=== PATIENT | female | born 1990 | race Caucasian/White ===

== ENCOUNTER 2018-05-13 17:50 | Emergency (ER) | payer MEDICAID ==
[2018-05-13 18:00] VITALS: RESP 18
[2018-05-13 18:53] LABS: BASO # 0.03 K/mm3 (0.0-2.0); BASO % 0.2 % (0.0-3.0); EOS % 0.1 % (1.5-5.0); GRAN # 11.04 (1.4-6.5); GRAN % 79.7 % (50.0-68.0); HEMOGLOBIN 14.1 g/dL (12.0-16.0); LYMPH # 2.2 (1.2-3.4); LYMPH % 15.7 % (22.0-35.0); MEAN CELL VOLUME 78.9 fl (80.0-105.0); MEAN CORPUSCULAR HEMOGLOBIN 26.8 pg (25.0-35.0); MEAN CORPUSCULAR HGB CONC 33.9 g/dl (31.0-37.0); MEAN PLATELET VOLUME 10.1 fl (7.0-11.0); MONO # 0.6 (0.1-0.6); MONO % 4.3 % (1.0-6.0); RBC 5.27 10^6/uL (3.5-6.1); RED CELL DISTRIBUTION WIDTH 12.6 % (11.5-14.5); WHITE BLOOD COUNT 13.9 10^3/uL (4.5-11.0)
[2018-05-13 19:02] VITALS: O2SAT 100
[2018-05-13] MEDS ORDERED: Sodium Chloride 0.9% 1,000 ML IV STA (19:02)
[2018-05-13 19:03] LABS: ACETAMINOPHEN < 10.0 ug/ml (10.0-20.0); ALB/GLOB RATIO 1.4 (1.1-1.8); ALT/SGPT 33 U/L (7-56); AST/SGOT 35 U/L (14-36); BLOOD UREA NITROGEN 22 mg/dL (7-21); CALCIUM 9.8 mg/dL (8.4-10.5); GFR NON-AFRICAN AMERICAN > 60; SALICYLATE < 1 mg/dL (2.0-20.0)
--- NOTE | 2018-05-13 19:30 | CARD ---
APPROVED REPORT Date of service: 05/13/2018 EKG Measurement Heart [id number] <Conclusion> Sinus tachycardia Incomplete RBBB Borderline ECG
[2018-05-13 19:38] LABS: T4 9.8 ug/dL (5.5-11.0)
[2018-05-13 19:45] LABS: URINE BILIRUBIN NEGATIVE (NEGATIVE); URINE BLOOD TRACE-INTACT (NEGATIVE); URINE GLUCOSE (UA) NEGATIVE (NEGATIVE); URINE LEUKOCYTE ESTERASE TRACE Leu/uL (NEGATIVE); URINE PROTEIN 100 mg/dL (<30 mg/dL); URINE UROBILINOGEN 0.2 E.U./dL (<1 E.U./dL)
--- NOTE | 2018-05-13 19:45 | ED PDOC ---
Arrival/HPI - General Chief Complaint: Psychiatric Evaluation Time Seen by Provider: 05/13/18 17:55 Historian: Patient - History of Present Illness Narrative History of Present Illness (Text): 05/13/18 19:38 27 year old female with PMH of bipolar disorder and anxiety presents to the emergency department biba with BPD for bizarre behavior at work this evening. Pt works for a construction company. Pt states she was just "stressed out" at work. States she has been off of her bipolar medications since February, and was previously on Risperidone and Depakote. She has a psychiatrist located in [place]. It is unclear the last time she saw her psychiatrist. Pt manic with flight of ideas during pt interview, speaking very quickly, appears anxious. Denies substance use, hallucinations, delusions, SI/HI, fever, chills, chest pain, SOB, hemoptysis, cough, urinary symptoms, abdominal pain, N/V, or any other associated symptoms. Past Medical History - Provider Review Nursing Documentation Reviewed: Yes - Psychiatric Hx Bipolar Disorder: Yes Hx Substance Use: No - Anesthesia Hx Anesthesia: No Hx Anesthesia Reactions: No Hx Malignant Hyperthermia: No Family/Social History - Physician Review Nursing Documentation Reviewed: Yes Family/Social History: No Known Family HX Smoking Status: Never Smoked Hx Alcohol Use: Yes Frequency of alcohol use: Socially Hx Substance Use: No Allergies/Home Meds Allergies/Adverse Reactions: Allergies No Known Allergies Allergy (Verified 05/13/18 18:00) Review of Systems - Physician Review All systems were reviewed & negative as marked: Yes - Review of Systems Constitutional: Normal. absent: Fevers Eyes: Normal. absent: Vision Changes ENT: Normal. absent: Sore Throat, Sinus Congestion Respiratory: Normal. absent: SOB, Cough Cardiovascular: Normal. absent: Chest Pain, Palpitations, Syncope Gastrointestinal: Normal. absent: Abdominal Pain, Nausea, Vomiting Genitourinary Female: Normal. absent: Dysuria, Frequency, Vaginal Bleeding, Vaginal Discharge Musculoskeletal: Normal. absent: Back Pain Skin: Normal. absent: Rash Neurological: Normal. absent: Headache, Dizziness, Focal Weakness, Dis equilibrium Endocrine: Normal Hemo/Lymphatic: Normal Psychiatric: Anxiety. absent: Depression, Suicidal Ideation Physical Exam Vital Signs Reviewed: Yes Vital Signs Temp Pulse Resp BP Pulse Ox 05/13/18 18:59 112 H 18 100 05/13/18 18:00 97.7 F 126 H 18 125/90 97 Temperature: Afebrile Blood Pressure: Normal Pulse: Tachycardic Respiratory Rate: Normal Appearance: Positive for: Well-Appearing, Non-Toxic, Other (Manic, Anxious, Delusional) Pain Distress: None Mental Status: Positive for: Alert and Oriented X 3, other (Manic, Anxious) - Systems Exam Head: Present: Atraumatic, Normocephalic Pupils: Present: PERRL Extroacular Muscles: Present: EOMI Conjunctiva: Present: Normal Mouth: Present: Moist Mucous Membranes Neck: Present: Normal Range of Motion. No: Meningeal Signs, MIDLINE TENDERNESS, Paraspinal Tenderness Respiratory/Chest: Present: Clear to Auscultation, Good Air Exchange. No: Respiratory Distress, Accessory Muscle Use Cardiovascular: Present: Regular Rate and Rhythm, Normal S1, S2, Peripheal Pulses Present. No: Murmurs Abdomen: Present: Normal Bowel Sounds. No: Tenderness, Distention, Peritoneal Signs, Rebound, Guarding Back: Present: Normal Inspection. No: CVA Tenderness, Midline Tenderness, Paraspinal Tenderness Upper Extremity: Present: Normal Inspection, Normal ROM, NORMAL PULSES, Neurovascularly Intact, Capillary Refill < 2s. No: Cyanosis, Edema, Temperature Abnormalties Lower Extremity: Present: Normal Inspection, NORMAL PULSES, Neurovascularly Intact, Capillary Refill < 2 s. No: Edema, Deformity, Temperature Abnormalties Neurological: Present: GCS=15, CN II-XII Intact, Speech Normal, Motor Func Grossly Intact, Normal Sensory Function, Gait Normal Skin: Present: Warm, Dry, Normal Color. No: Rashes Lymphatic: No: Cervical Adenopathy Psychiatric: Present: Alert, Oriented x 3, Normal Insight, Normal Concentration, Anxious, Other (Manic). No: Suicidal Ideation, Homicidal Ideation Medical Decision Making ED Course and Treatment: 05/13/18 19:46 Initial Plan: * CBC, CMP * TSH, T3, T4 * Alcohol, Acetaminophen, Salicylate levels * Urinalysis, culture * EKG * CXR * PES evaluation EKG shows sinus tachycardia at 140bpm, Normal intervals, No STEMI Patient denies SOB or chest pain. Bloodwork significant for leukocytosis at 13.9 Urinalysis shows trace leuk esterase and blood Alcohol, acetaminophen, salicylate negative Pt refusing IVF. 20:00 Patient care signed out to PA [place], pending CXR, thyroid studies, PES evaluation, disposition. - Lab Interpretations Lab Results: Total Bilirubin 1.2 mg/dL (0.2-1.3) 05/13/18 18:35 AST 35 U/L (14-36) 05/13/18 18:35 ALT 33 U/L (7-56) 05/13/18 18:35 Alkaline Phosphatase 52 U/L (38-126) 05/13/18 18:35 Total Protein 8.4 g/dL (5.8-8.3) H 05/13/18 18:35 Albumin 5.0 g/dL (3.0-4.8) H 05/13/18 18:35 Globulin 3.5 gm/dL 05/13/18 18:35 Albumin/Globulin Ratio 1.4 (1.1-1.8) 05/13/18 18:35 05/13/18 18:35 05/13/18 18:35 Lab Results 05/13/18 19:35: Urine Color Yellow, Urine Appearance Clear, Urine pH 6.0, Ur Specific [place] 1.025, Urine Protein 100 H, Urine Glucose (UA) Negative, Urine Ketones Negative, Urine Blood Trace-intact H, Urine Nitrate Negative, Urine Bilirubin Negative, Urine Urobilinogen 0.2, Ur Leukocyte Esterase Trace H, Urine RBC Pending, Urine WBC Pending 05/13/18 19:00: Thyroxine (T4) 9.8, Total T3 Pending, TSH 3rd Generation Pending 05/13/18 18:35: Alcohol, Quantitative < 10 05/13/18 18:35: Salicylates < 1 L, Acetaminophen < 10.0 L 05/13/18 18:35: Sodium 141, Potassium 3.4 L, Chloride 106, Carbon Dioxide 22, Anion Gap 16, BUN 22 H, Creatinine 1.0, Est GFR ( Amer) > 60, Est GFR (Non-Af Amer) > 60, Random Glucose 130 H, Calcium 9.8, Magnesium 1.9, Total Bilirubin 1.2, AST 35, ALT 33, Alkaline Phosphatase 52, Total Protein 8.4 H, Albumin 5.0 H, Globulin 3.5, Albumin/Globulin Ratio 1.4 05/13/18 18:35: WBC 13.9 H, RBC 5.27, Hgb 14.1, Hct 41.6, MCV 78.9 L, MCH 26.8, MCHC 33.9, RDW 12.6, Plt Count 321, MPV 10.1, Gran % 79.7 H, Lymph % (Auto) 15.7 L, [place] % (Auto) 4.3, Eos % (Auto) 0.1 L, Baso % (Auto) 0.2, Gran # 11.04 H, Lymph # (Auto) 2.2, [place] # (Auto) 0.6, Eos # (Auto) 0.0, Baso # (Auto) 0.03 I have reviewed the lab results: Yes - RAD Interpretation Radiology Orders: 05/13/18 18:37 CHEST PORTABLE [RAD] Stat - Medication Orders Current Medication Orders: Sodium Chloride (Sodium Chloride 0.9%) 1,000 mls @ 999 mls/hr IV .Q1H1M STA Stop: 05/13/18 20:02 - Transfer of Care Patient signed out to Dr:: XIOMARA DALLAS Pending Labs:: TSH, T3, T4 Pending Radiology Studies:: CXR Other: PES EVAL, DISPOSITION Disposition/Present on Arrival - Present on Arrival Any Indicators Present on Arrival: No History of DVT/PE: No History of Uncontrolled Diabetes: No Urinary Catheter: No History of Decub. Ulcer: No History Surgical Site Infection Following: None - Disposition Have Diagnosis and Disposition been Completed?: No Diagnosis: UTI (urinary tract infection), Anxious appearance Disposition Time: 20:00 Condition: STABLE Discharge Instructions (ExitCare): Urinary Tract Infections in Adults, Bipolar Disorder Additional Instructions: Thank you for letting us take care of you today. You were treated for UTI, bipolar d/o. The emergency medical care you received today was directed at your acute symptoms. If you were prescribed any medication, please fill it and take as directed. It may take several days for your symptoms to resolve. Return to the Emergency Department if your symptoms worsen, do not improve, or if you have any other problems. Please contact your doctor in 2 days for re-evaluation and follow up / or call one of the physicians/clinics you have been referred to that are listed on the Patient Visit Information form that is included in your discharge packet. Bring any paperwork you were given at discharge with you along with any medications you are taking to your follow up visit. Our treatment cannot replace ongoing medical care by a primary care provider (PCP) outside of the emergency department. Thank you for allowing the [facility] team to be part of your care today. If you had an X-Ray: A Radiologist will review the ED reading if any change in treatment is needed we will contact you. If you had a urine culture: It will take several days for the results, if any change in treatment is needed we will contact you. Prescriptions: Nitrofurantoin Macrocrystals [Macrobid] 100 mg PO BID #20 cap Forms: [employer] (Bengali)
[2018-05-13 19:46] LABS: URINE COLOR YELLOW (YELLOW)
[2018-05-13 19:47] LABS: URINE APPEARANCE CLEAR (CLEAR)
[2018-05-13 19:51] LABS: T3 1.67 ng/mL (0.97-1.69)
[2018-05-13 20:00] LABS: BARBITURATES, UR NEGATIVE (NEGATIVE); BENZODIAZEPINES, UR NEGATIVE (NEGATIVE); OPIATES, UR NEGATIVE (NEGATIVE); PHENCYCLIDINE, UR NEGATIVE (NEGATIVE)
--- NOTE | 2018-05-13 20:44 | ED PDOC ---
Physical Exam Vital Signs Temp Pulse Resp BP Pulse Ox 05/13/18 18:59 112 H 18 100 05/13/18 18:00 97.7 F 126 H 18 125/90 97 Medical Decision Making ED Course and Treatment: 05/13/18 20:00 Case endorsed to me by DEVIN Guzman for pending PES evaluation. Patient is a 27 year old female who presented to the ED earlier today for evaluation of bizarre behavior at work. Patient is currently resting in bed in no acute distress. Patient denies any new medical complaints. Labs reviewed : wbc 13. UA and CXR still pending. 05/13/18 22:00 Patient seen and evaluated by PES. After PES evaluation, the patient is cleared for outpatient psych follow up. CXR : NAD. UA shows +UTI. On reevaluation, patient remains awake alert and oriented 3 in no acute distress, she is calm and cooperative. Diagnostic results d/w the patient. Notified that she has a UTI. Gave Rx for macrobid. Advised to follow up with primary care physician and outpatient psych referral provided by PES in 1-2 days without fail. Advised to take medication as prescribed. Return to the emergency room at any time for any new or worsening symptoms. Patient states she fully agrees with and understands discharge instructions. States that she agrees with the plan and disposition. Verbalized and repeated discharge instructions and plan. I have given the patient opportunity to ask any additional questions. - Lab Interpretations Lab Results: Total Bilirubin 1.2 mg/dL (0.2-1.3) 05/13/18 18:35 AST 35 U/L (14-36) 05/13/18 18:35 ALT 33 U/L (7-56) 05/13/18 18:35 Alkaline Phosphatase 52 U/L (38-126) 05/13/18 18:35 Total Protein 8.4 g/dL (5.8-8.3) H 05/13/18 18:35 Albumin 5.0 g/dL (3.0-4.8) H 05/13/18 18:35 Globulin 3.5 gm/dL 05/13/18 18:35 Albumin/Globulin Ratio 1.4 (1.1-1.8) 05/13/18 18:35 Urine Color Yellow (YELLOW) 05/13/18 19:35 Urine Appearance Clear (CLEAR) 05/13/18 19:35 Urine pH 6.0 (4.7-8.0) 05/13/18 19:35 Ur Specific [place] 1.025 (1.005-1.035) 05/13/18 19:35 Urine Protein 100 mg/dL (<30 mg/dL) H 05/13/18 19:35 Urine Glucose (UA) Negative mg/dL (NEGATIVE) 05/13/18 19:35 Urine Ketones Negative mg/dL (NEGATIVE) 05/13/18 19:35 Urine Blood Trace-intact (NEGATIVE) H 05/13/18 19:35 Urine Nitrate Negative (NEGATIVE) 05/13/18 19:35 Urine Bilirubin Negative (NEGATIVE) 05/13/18 19:35 Urine Urobilinogen 0.2 E.U./dL (<1 E.U./dL) 05/13/18 19:35 Ur Leukocyte Esterase Trace Yoel/uL (NEGATIVE) H 05/13/18 19:35 Urine RBC 5 - 10 /hpf (0-2) H 05/13/18 19:35 Urine WBC 5 - 10 /hpf (0-6) H 05/13/18 19:35 Ur Epithelial Cells 10 - 12 /hpf (0-5) H 05/13/18 19:35 - RAD Interpretation Radiology Orders: 05/13/18 18:37 CHEST PORTABLE [RAD] Stat - Medication Orders Current Medication Orders: Discontinued Medications Sodium Chloride (Sodium Chloride 0.9%) 1,000 mls @ 999 mls/hr IV .Q1H1M STA Stop: 05/13/18 20:02 - PA / ANATOMIC PATHOLOGY MANAGER / Resident Statement MD/DO has reviewed & agrees with the documentation as recorded. - Scribe Statement The provider has reviewed the documentation as recorded by the Scribe Deyanira Bui. All medical record entries made by the Scribe were at my direction and personally dictated by me. I have reviewed the chart and agree that the record accurately reflects my personal performance of the history, physical exam, medical decision making, and the department course for this patient. I have also personally directed, reviewed, and agree with the discharge instructions and disposition. Disposition/Present on Arrival - Present on Arrival Any Indicators Present on Arrival: No History of DVT/PE: No History of Uncontrolled Diabetes: No Urinary Catheter: No History of Decub. Ulcer: No History Surgical Site Infection Following: None - Disposition Have Diagnosis and Disposition been Completed?: Yes Diagnosis: UTI (urinary tract infection), Bipolar disorder Disposition: HOME/ ROUTINE Disposition Time: 22:15 Patient Plan: Discharge Condition: STABLE Discharge Instructions (ExitCare): Urinary Tract Infections in Adults, Bipolar Disorder Additional Instructions: Thank you for letting us take care of you today. You were treated for UTI, bipolar d/o. The emergency medical care you received today was directed at your acute symptoms. If you were prescribed any medication, please fill it and take as directed. It may take several days for your symptoms to resolve. Return to the Emergency Department if your symptoms worsen, do not improve, or if you have any other problems. Please contact your doctor in 2 days for re-evaluation and follow up / or call one of the physicians/clinics you have been referred to that are listed on the Patient Visit Information form that is included in your discharge packet. Bring any paperwork you were given at discharge with you along with any medications you are taking to your follow up visit. Our treatment cannot replace ongoing medical care by a primary care provider (PCP) outside of the emergency department. Thank you for allowing the [email or web address] team to be part of your care today. If you had an X-Ray: A Radiologist will review the ED reading if any change in treatment is needed we will contact you. If you had a urine culture: It will take several days for the results, if any change in treatment is needed we will contact you. Prescriptions: Nitrofurantoin Macrocrystals [Macrobid] 100 mg PO BID #20 cap Forms: [employer] (Gibraltarian)
[2018-05-13 23:10] VITALS: BP 151/80; PULSE 97; TEMP 97.9
--- NOTE | 2018-05-14 08:26 | RAD ---
Date of service: 05/13/2018 HISTORY: PES COMPARISON: No prior. FINDINGS: LUNGS: No active pulmonary disease. PLEURA: No significant pleural effusion identified, no pneumothorax apparent. CARDIOVASCULAR: No aortic atherosclerotic calcification present. Normal cardiac size. No pulmonary vascular congestion. OSSEOUS STRUCTURES: No significant abnormalities. VISUALIZED UPPER ABDOMEN: Normal. OTHER FINDINGS: None. IMPRESSION: No active disease.
== END 2018-05-13 22:45 | disposition home or self-care (01) ==
LOC: ED 17:50
DX: F41.9 Anxiety disorder, unspecified (principal); N39.0 Urinary tract infection, site not specified; F31.9 Bipolar disorder, unspecified
CPT/HCPCS: 71045; 80053; 80320; 80324; 80329; 80345; 80346; 80349; 80353; 80358; 80361; 81001; 81025; 83735; 83992; 84436; 84443; 84480; 85025; 87086; 90791; 93005; 99284; J7030